=== PATIENT | female | born 1935 | race Caucasian/White ===

== ENCOUNTER 2023-09-06 09:12 | Day surgery (SDC) | payer MEDICARE ==
[~2023-09-06] VITALS: Ht 157.5 cm; Wt 57.6 kg
== END 2023-09-06 11:44 | disposition home or self-care (01) ==
LOC: ORSCSDS 09:12
PROVIDERS: Student in an Organized Health Care Education/Training Program
PROC: 08RJ3JZ Replacement of Right Lens with Synthetic Substitute, Percutaneous Approach (ICD-10-PCS; principal; 2023-09-06 11:00)
DX: H25.11 Age-related nuclear cataract, right eye (principal); Z96.1 Presence of intraocular lens
CPT/HCPCS: J2250; J3010; J7040; V2632

== ENCOUNTER 2024-09-05 14:56 | Inpatient (IN) | payer MEDICARE ==
[~2024-09-05] VITALS: Ht 157.5 cm; Wt 54.4 kg
[2024-09-05 15:41] LABS: BASOPHILS ABSOLUTE AUTO 0.05 K/mm3 (0.00-0.23); BASOPHILS PERCENT AUTO 0 % (0-2); EOSINOPHILS PERCENT AUTO 0 % (0-6); Hematocrit 46.9 % (33.0-51.0); Hemoglobin 15.9 g/dL (11.5-16.0); IMMATURE GRAN ABSOLUTE AUTO 0.07 K/mm3 (0.00-0.10); IMMATURE GRAN PERCENT AUTO 1 % (0-1); LYMPHOCYTES ABSOLUTE AUTO 1.56 K/mm3 (0.84-5.20); LYMPHOCYTES PERCENT AUTO 10 % (21-46); MONOCYTES ABSOLUTE AUTO 0.76 K/mm3 (0.16-1.47); MONOCYTES PERCENT AUTO 5 % (4-13); Mean Corpuscular HGB 30.2 pg (26.0-34.0); Mean Corpuscular HGB Conc 33.9 g/dL (31.5-36.5); Mean Corpuscular Volume 89 fL (80-100); Mean Platelet Volume 10.6 fL (9.1-12.4); NEUTROPHILS ABSOLUTE AUTO 12.69 K/mm3 (1.96-9.15); NEUTROPHILS PERCENT AUTO 84 % (41-73); Platelet Count 328 K/mm3 (150-400); RDW Coefficient Variation 13.3 % (11.7-14.2); RDW Standard Deviation 43.8 fL (35.1-46.3); Red Blood Cell Count 5.26 M/mm3 (3.80-5.20); White Blood Cell Count 15.13 K/mm3 (4.00-11.30)
[2024-09-05 16:02] LABS: Albumin, Blood 4.2 g/dL (3.4-5.0); Albumin/Globulin Ratio 1.2 (0.8-1.8); Bun/Creatinine Ratio 18.1 (12.0-20.0); Calcium, Blood 11.1 mg/dL (8.5-10.1); Creatinine, Blood 1.05 mg/dL (0.40-1.00); Globulin, Blood 3.4 g/dL (2.2-4.0); Potassium, Blood 3.7 mmol/L (3.5-5.5); Total Protein, Blood 7.6 g/dL (6.4-8.2)
[2024-09-05] MEDS ORDERED: Ondansetron HCl 2 MG / ML 2ML Vial IV ONE (18:30)
[2024-09-05] MEDS ORDERED: NS 1,000 ML IV SCH (18:30)
[2024-09-05] MEDS ORDERED: Morphine Sulfate 4 MG/1 ML Injection IV ONE (18:30)
[2024-09-05] MEDS ORDERED: SODIUM CHLORIDE IV SCH (18:35)
[2024-09-05] MEDS ORDERED: Cefepime HCl 2,000 MG in NS 100 ML IV ONE (18:45)
[2024-09-05] MEDS ORDERED: MetroNIDAZOLE 500MG/NS 100 ml 100 ML IV ONE (18:45)
[2024-09-05 19:26] LABS: Source, Urine Clean Catch
[2024-09-05 19:30] LABS: Appearance, Urine Clear (Clear); Bilirubin, Urine Neg (Neg); Blood, Urine 5+ (Neg); Color, Urine Yellow (P-Yellow); Glucose Qualitative, Urine Neg (Neg); Ketones, Urine 3+ (Neg); Leukocyte Esterase, Urine Neg (Neg); Nitrite, Urine Neg (Neg); Protein, Urine 3+ (Neg); Specific Gravity, Urine 1.015 (1.003-1.022); Urobilinogen, Urine NORM (Normal)
[2024-09-05 19:51] LABS: Red Blood Cells, Urine 25-50 /hpf (0-2); Squamous Epithelial Cells Few /hpf (Few)
[2024-09-05 19:52] LABS: Bacteria Few /hpf
[2024-09-06] MEDS ORDERED: Ondansetron HCl 2 MG / ML 2ML Vial IV PRN (02:25)
[2024-09-06] MEDS ORDERED: Acetaminophen 325 MG TABLET PO PRN (02:25)
[2024-09-06] MEDS ORDERED: HYDROcodone 10-APAP 325 TAB PO PRN (02:30)
[2024-09-06] MEDS ORDERED: Morphine Sulfate 4 MG/1 ML Injection IV PRN (02:30)
[2024-09-06] MEDS ORDERED: FLU VACC TS2024-25(6MOS UP)/PF 45 MCG/0.5 ML SYRINGE IM SCH (02:30)
[2024-09-06] MEDS ORDERED: Naloxone HCl 0.4MG / ML 1ML Vial IV PRN (02:30)
[2024-09-06] MEDS ORDERED: Ketorolac Tromethamine 15mg Vial IV PRN (02:40)
[2024-09-06] MEDS ORDERED: Lactated Ringer's 1,000 ML IV SCH (03:00)
[2024-09-06 06:59] LABS: BASOPHILS ABSOLUTE AUTO 0.04 K/mm3 (0.00-0.23); BASOPHILS PERCENT AUTO 0 % (0-2); EOSINOPHILS ABSOLUTE AUTO 0.05 K/mm3 (0.00-0.68); EOSINOPHILS PERCENT AUTO 0 % (0-6); Hematocrit 39.2 % (33.0-51.0); Hemoglobin 12.8 g/dL (11.5-16.0); IMMATURE GRAN ABSOLUTE AUTO 0.04 K/mm3 (0.00-0.10); IMMATURE GRAN PERCENT AUTO 0 % (0-1); LYMPHOCYTES ABSOLUTE AUTO 2.64 K/mm3 (0.84-5.20); LYMPHOCYTES PERCENT AUTO 22 % (21-46); MONOCYTES ABSOLUTE AUTO 1.33 K/mm3 (0.16-1.47); MONOCYTES PERCENT AUTO 11 % (4-13); Mean Corpuscular HGB 30.2 pg (26.0-34.0); Mean Corpuscular HGB Conc 32.7 g/dL (31.5-36.5); Mean Corpuscular Volume 93 fL (80-100); Mean Platelet Volume 10.9 fL (9.1-12.4); NEUTROPHILS ABSOLUTE AUTO 8.06 K/mm3 (1.96-9.15); NEUTROPHILS PERCENT AUTO 66 % (41-73); Platelet Count 241 K/mm3 (150-400); RDW Coefficient Variation 13.6 % (11.7-14.2); RDW Standard Deviation 45.7 fL (35.1-46.3); Red Blood Cell Count 4.24 M/mm3 (3.80-5.20); White Blood Cell Count 12.16 K/mm3 (4.00-11.30)
[2024-09-06 07:19] LABS: Albumin, Blood 3.2 g/dL (3.4-5.0); Albumin/Globulin Ratio 1.1 (0.8-1.8); Bun/Creatinine Ratio 17.9 (12.0-20.0); Creatinine, Blood 0.73 mg/dL (0.40-1.00); Globulin, Blood 2.8 g/dL (2.2-4.0); Potassium, Blood 3.4 mmol/L (3.5-5.5)
[2024-09-06 08:15] VITALS: BP 191/67
[2024-09-06] MEDS ORDERED: Enoxaparin 40 MG/0.4 ML SYR SC SCH (09:00)
[2024-09-06] MEDS ORDERED: Docusate Sodium 100 MG Cap PO SCH (09:00)
[2024-09-06] MEDS ORDERED: Tamsulosin HCl 0.4 MG Cap PO SCH (09:00)
[2024-09-06 11:25] VITALS: BP 194/65
--- NOTE | 2024-09-06 11:26 | NUR ---
NOTE: PT'S BLOOD PRESSURE NOTED TO BE ELEVATED UPON ADMIT TO THE FLOOR. THIS NURSE RECHECKED IT AT 1120, REMAINS ELEVATED AT 194/65. DR. ABDUL, THE PROVIDER, NOTIFIED. PROVIDER STATED SHE WOULD PUT IN NEW ORDERS FOR A PRN HTN MEDICATION.
[2024-09-06] MEDS ORDERED: HydrALAZINE HCl 20 MG / ML 1ML Vial IV PRN (12:00)
[2024-09-06] MEDS ORDERED: Potassium Chloride 20 MEQ TabCR PO ONE (12:00)
[2024-09-06 13:24] VITALS: BP 149/43
[2024-09-06 15:06] VITALS: BP 124/48
[2024-09-06] MEDS ORDERED: Nystatin 100,000 Unit/ML Susp 5 ML UDC MT SCH (17:00)
--- NOTE | 2024-09-06 17:20 | NUR ---
THIS [employer] TRUCK DRIVER CARED FOR THIS PT IN THE ER BEFORE THEY WERE ADMITTED TO MEDICAL FLOOR.
--- NOTE | 2024-09-06 17:58 | NUR ---
SHIFT SUMMARY PT AOX4, INDEPENDENT IN THE ROOM. AT THE BS. MEDICATED FOR PAIN PER THE EMAR, PT DOES MAKE HER NEEDS KNOWN. APPETITE OKAY. URINE FILTER IN THE BR AND PT INSTRUCTED ON HOW TO USE IT. NO STONE YET. REPOSITIONS SELF IN BED. SEE OTHER NOTE ABOUT BLOOD PRESSURE THIS AFTERNOON. PTS VSS AT THIS TIME. CALL LIGHT WITHIN REACH, BED LOCKED AND IN THE LOWEST POSITION. WILL REPORT TO ONCOMING NURSE.
[2024-09-06 19:40] VITALS: BP 148/58
[2024-09-07 03:36] VITALS: BP 140/59
[2024-09-07 05:38] LABS: Bun/Creatinine Ratio 16.6 (12.0-20.0); Calcium, Blood 9.8 mg/dL (8.5-10.1); Creatinine, Blood 0.84 mg/dL (0.40-1.00); Potassium, Blood 3.7 mmol/L (3.5-5.5)
--- NOTE | 2024-09-07 06:35 | NUR ---
Patient alert and oriented, VSS, resting comfortably in bed on room air overnight. Patient ambulating to restroom independently for needs, straining own urine. PRN pain medications given x2 overnight, see eMAR for detail.
[2024-09-07 08:09] VITALS: BP 184/70
[2024-09-07 09:34] VITALS: BP 133/59
[2024-09-07] MEDS ORDERED: DOCU100 PO (10:15)
[2024-09-07] MEDS ORDERED: ACET325 PO (10:15)
[2024-09-07] MEDS ORDERED: [UNRECOGNIZED DRUG - CODE] MT (10:16)
[2024-09-07] MEDS ORDERED: Flomax0.4 MG PO (10:16)
[2024-09-07] MEDS ORDERED: AMLO5 PO (10:17)
[2024-09-07] MEDS ORDERED: Ketorolac Tromethamine 30mg Vial IV ONE (10:35)
[2024-09-07] MEDS ORDERED: IBUP600 PO (13:25)
[2024-09-07] MEDS ORDERED: Ketorolac Tromethamine 30mg Vial IV PRN (14:55)
[2024-09-07 16:13] VITALS: BP 144/67
[2024-09-07] MEDS ORDERED: Ibuprofen 600 MG Tab PO PRN (16:25)
[2024-09-07] MEDS ORDERED: Ketorolac Tromethamine 15mg Vial IV PRN (16:30)
--- NOTE | 2024-09-07 17:59 | NUR ---
SHIFT NOTE: PT REPORTS PAIN AND N/V T/O SHIFT. PT MEDICATED PER MAR TO CONTROL PAIN AND NAUSEA. PT IND WITH ADLS. SHE IS STRAINING HER URINE AND SHOWING RN EACH VOID. HER IS AT BEDSIDE. PLAN IS TO D/C HOME TOMORROW.
[2024-09-07 20:58] VITALS: BP 137/50
[2024-09-08 05:25] VITALS: BP 137/62
[2024-09-08 07:14] VITALS: BP 165/61
[2024-09-08] MEDS ORDERED: AmLODIPine Besylate 5 MG Tab PO SCH (09:00)
[2024-09-08] MEDS ORDERED: ONDA4ODT MM (10:05)
--- NOTE | 2024-09-08 11:45 | NUR ---
PT DISCHARGED HOME. DC INSTRUCTIONS GIVEN TO PT AND BY BREAK NURSE. DR ABDUL AT BEDSIDE TO GIVE PT INSTRUCTIONS AND ENCOURAGED PT TO GET A PCP AND FOLLOW UP WITH AN OBGYN. LOCAL PCP LIST GIVEN TO PT. IV DC'd. ALL BELONGINGS SENT HOME WITH PT. PERSCRIPTIONS FAXED TO PHARMACY. PT TAKEN OUT BY WHEELCHAIR TO WAITING VEHICLE.
== END 2024-09-08 11:45 | disposition home or self-care (01) | DRG 694 ==
LOC: ER 14:56 → ERHOLD 09-06 02:22 → MEDS 09-06 08:07
PROVIDERS: Internal Medicine; Physician Assistant; ADMIT Student in an Organized Health Care Education/Training Program
DX: N13.2 Hydronephrosis with renal and ureteral calculous obstruction (principal); E87.6 Hypokalemia; N83.8 Other noninflammatory disorders of ovary, fallopian tube and broad ligament; I10 Essential (primary) hypertension; H26.9 Unspecified cataract; R73.9 Hyperglycemia, unspecified; E83.52 Hypercalcemia; Z98.890 Other specified postprocedural states
CPT/HCPCS: 36415; 74177; 80048; 80053; 81001; 83605; 83690; 83735; 85025; 87040; 94760; 96365-59; 96366; 96367; 96375; 99285-25; A9270; J0360; J0692; J1650; J1885; J2270; J2405; J7030; J7120; Q9967